=== PATIENT | female | born 1995 | race Caucasian/White ===

== ENCOUNTER 2018-04-27 07:43 | Observation (INO) | payer OTHER ==
[2018-04-27] VITALS (8 sets, daily range): BP systolic 95–123; BP diastolic 51–87
[~2018-04-27] VITALS: Ht 170.2 cm; Wt 57.2 kg
[~2018-04-27 07:43] MED LIST: DEPO-PROVE150 MG/11 IM
[2018-04-27] MEDS ORDERED: ONDANSETRON HCL INJ 2 MG/ML VIAL IV STA (08:52)
[2018-04-27] MEDS ORDERED: HYDROMORPHONE 1MG/1ML INJ IV STA (08:52)
[2018-04-27 09:11] LABS: BASOPHILS % 0.3 % (0.0-1.0); EOSINOPHILS # (AUTO) 0.1 (0.0-0.4); EOSINOPHILS % 1.1 % (0.0-6.0); HEMATOCRIT 39.1 % (34.2-44.1); HEMOGLOBIN 13.6 g/dL (12.0-16.0); LYMPHOCYTES # (AUTO) 0.7 (1.0-3.2); LYMPHOCYTES % 6.8 % (18.0-39.1); MEAN CORPUSCULAR HEMOGLOBIN 30.4 pg (28-32); MEAN CORPUSCULAR HGB CONC 34.8 g/dL (31-35); MEAN CORPUSCULAR VOLUME 87.5 fL (81-99); MONOCYTES # (AUTO) 0.5 (0.2-0.8); MONOCYTES % 4.7 % (4.4-11.3); NEUTROPHILS # (AUTO) 9.5 (2.1-6.9); NEUTROPHILS % 86.6 % (38.7-80.0); PLATELET COUNT 148 x10e3/uL (140-360); RED BLOOD COUNT 4.47 x10e6/uL (3.6-5.1)
[2018-04-27 09:20] LABS: INR 1.02; PROTHROMBIN TIME 12.6 seconds (11.9-14.5)
[2018-04-27 09:21] LABS: PARTIAL THROMBOPLASTIN TIME 28.6 seconds (23.8-35.5)
[2018-04-27 09:28] LABS: CLARITY,URINE HAZY (CLEAR); COLOR,URINE YELLOW (YELLOW)
[2018-04-27 09:29] LABS: BACTERIA,URINE FEW /HPF; BILIRUBIN,URINE NEGATIVE (NEGATIVE); EPITHELIAL CELLS,URINE MANY /LPF; KETONES,URINE NEGATIVE (NEGATIVE); LEUKOCYTE ESTERASE ,URINE NEGATIVE (NEGATIVE); NITRITE,URINE NEGATIVE (NEGATIVE); PROTEIN,URINE DIPSTICK NEGATIVE (NEGATIVE); RBC,URINE 0-5 /HPF (0-5); URINE UROBILINOGEN 0.2 mg/dL (0.2 - 1); WBC,URINE (MAN) 0-5 /HPF (0-5)
[2018-04-27 09:30] LABS: PREGNANCY TEST, URINE NEGATIVE (NEGATIVE)
[2018-04-27] MEDS ORDERED: HYDROMORPHONE 1MG/1ML INJ IV ONE ×2 (09:30→12:00)
[2018-04-27 09:31] LABS: ALANINE AMINOTRANSFERASE 13 IU/L (0-55); ALBUMIN/GLOBULIN RATIO 1.3 (0.8-2.0); ALKALINE PHOSPHATASE 36 IU/L (40-150); AMYLASE 68 U/L (25-125); ANION GAP 14.7 mmol/L (8-16); BLOOD UREA NITROGEN 13 mg/dL (7-26); BUN/CREATININE RATIO 16 (6-25); CALCIUM 9.5 mg/dL (8.4-10.2); CARBON DIOXIDE 22 mmol/L (22-29); CHLORIDE 104 mmol/L (98-107); CREATININE, SERUM 0.79 mg/dL (0.57-1.11); EST GLOMERULAR FILTRATION RATE > 60 ML/MIN (60-); GLUCOSE 98 mg/dL (74-118); LIPASE 26 U/L (8-78); POTASSIUM 3.7 mmol/L (3.5-5.1); SODIUM 137 mmol/L (136-145)
[2018-04-27] MEDS ORDERED: SODIUM CHLORIDE 0.9% 1000ML 1,000 ML IV SCH (09:45)
[2018-04-27] MEDS ORDERED: ONDANSETRON HCL INJ 2 MG/ML VIAL IV ONE ×2 (10:00→12:00)
--- NOTE | 2018-04-27 10:48 | Diagnostic Imaging Report ---
EXAM: CT Abdomen and Pelvis WITH contrast INDICATION: Pain COMPARISON: None. TECHNIQUE: Abdomen and Pelvis was scanned utilizing a multidetector helical scanner after administration of IV contrast. Coronal and sagittal reformations were obtained. IV CONTRAST: 100 mL Isovue-370 COMPLICATIONS: None RADIATION DOSE: Total DLP:192 mGy*cm Estimated effective dose: (DLP x 0.015 x size factor) mSv CTDIvol has been reviewed. It is below the limits set by the Radiation Protocol Committee (RPC). FINDINGS: Abdomen: Lung Bases: No acute findings. Solid Organs: Liver, adrenals, kidneys, spleen, and pancreas unremarkable. Upper GI Tract: No small bowel obstructive changes. Vascularity: No vascular calcifications or aortic aneurysm. Lymph Nodes: No suspicious adenopathy. Other: None. Pelvis: Bladder: Unremarkable. Other: Uterus/adnexa suboptimally evaluated with CT. Trace free fluid statistically ruptured or leaking ovarian cyst given age. Colon: Appendix is dilated and inflamed with appendicolith. No fluid collection. Bones: No acute findings. IMPRESSION: 1. Uncomplicated appendicitis. Signed by: Dr. Brad Hernandez MD on 04/27/2018 10:45 AM
[2018-04-27] MEDS ORDERED: PIPER-TAZ 3.375 GM 50 ML IV STA (11:06)
[2018-04-27] MEDS ORDERED: D5.45%NS/KCL 20MEQ 1,000 ML IV SCH (11:28)
[2018-04-27] MEDS ORDERED: HYDROMORPHONE 1MG/1ML INJ IV PRN (11:30)
[2018-04-27] MEDS ORDERED: ONDANSETRON HCL INJ 2 MG/ML VIAL IV PRN ×2 (11:30→15:00)
[2018-04-27] MEDS ORDERED: PIPER-TAZ 3.375 GM 50 ML IV SCH (13:00)
[2018-04-27] MEDS ORDERED: BUPIVACAINE HCL 0.5% INJ 30 ML VIAL INJ ONE (13:50)
[2018-04-27] MEDS: DEXTROSE 5%/0.45% SOD CHL 1,000 ML IV SCH (15:00)
[2018-04-27] MEDS ORDERED: MORPHINE SULFATE INJ 4 MG/ML INJ IV PRN (15:00)
--- NOTE | 2018-04-27 15:32 | Pre Op History & Physical ---
CHIEF COMPLAINT: Abdominal pain. HISTORY OF PRESENT ILLNESS: The patient is a 22-year-old female who is having complaints of abdominal pain. The pain started in the mid abdomen and became more localized to the right lower quadrant. She had associated nausea and vomiting. Pain persisted and it got worse. CT of the abdomen done which reveals findings suggestive of acute appendicitis. PAST MEDICAL HISTORY: Is otherwise unremarkable. Denies chronic medical problems. Has not had previous surgery. CURRENT MEDICATIONS: None. ALLERGIES: NO KNOWN DRUG ALLERGIES. FAMILY HISTORY: Noncontributory. SOCIAL HISTORY: The patient does not smoke cigarettes or drink alcohol. REVIEW OF SYSTEMS: Is as stated above, otherwise was negative. PHYSICAL EXAMINATION: GENERAL: The patient is awake and alert and in no distress. VITAL SIGNS: Normal. HEENT: Unremarkable. Sclerae is nonicteric. NECK: Supple with no masses. CHEST: Lungs equal breath sounds are clear bilaterally. CARDIOVASCULAR: Regular rate and rhythm. Normal S1 and S2 without murmur, S3 or S4. There was no jugular venous distention. ABDOMEN: Tender in the right lower quadrant with signs of peritonitis localized to the right lower quadrant. There is no mass. No distention. EXTREMITIES: Warm. There was no edema. Pulses are palpable. NEURO: Intact. LAB TESTS: White blood count is 10.96. Hemoglobin and hematocrit are normal. Chemistries are normal. test was negative. Urinalysis essentially negative. ASSESSMENT: A 22-year-old female with acute appendicitis now admitted to the hospital. PLAN: Laparoscopic appendectomy. The procedure was explained to the patient including risks, benefits and alternatives. She understands the procedure and she has had an opportunity to ask questions. Job#: [id number]
[2018-04-27] MEDS: HYDROCODONE/APAP 5MG-325MG TAB PO PRN ×2 (17:25→22:00)
[2018-04-27] MEDS: PIPER-TAZ 3.375 GM 50 ML IV SCH ×2 (17:25→22:00)
[2018-04-27] MEDS ORDERED: ACETAMINOPHEN 1000 MG/100 ML IV ONE (17:38)
[2018-04-27] MEDS ORDERED: PROPOFOL IV EMULSION 10 MG/ML 20 ML VIAL ONE (17:38)
[2018-04-27] MEDS ORDERED: ONDANSETRON HCL INJ 2 MG/ML VIAL ONE (17:38)
[2018-04-27] MEDS ORDERED: SUCCINYLCHOLINE 200 MG/10 ML SYR ONE (17:38)
[2018-04-27] MEDS ORDERED: SEVOFLURANE INHAL SOLN 250 ML PEN BTL ONE (17:38)
[2018-04-27] MEDS ORDERED: DEXAMETHASONE SOD PHOS INJ 4 MG/ML VIAL ONE (17:38)
[2018-04-27] MEDS ORDERED: KETOROLAC TROMETHAMINE 30 MG/ML VIAL ONE (17:38)
[2018-04-27] MEDS ORDERED: SODIUM CHLORIDE 0.9% 50ML 50 ML ONE (17:47)
[2018-04-27] MEDS ORDERED: IOPAMIDOL 370 MG/ML 200 ML INFUS..BTL INJ ONE (17:47)
--- NOTE | 2018-04-27 23:49 | Operative Report ---
DATE OF PROCEDURE: April 27, 2018 PREOPERATIVE DIAGNOSIS: Acute appendicitis. POSTOPERATIVE DIAGNOSIS: Acute appendicitis. PROCEDURES: 1. Diagnostic laparoscopy. 2. Laparoscopic appendectomy. MARKETING SUPPORT SPECIALIST: None. ANESTHESIA: General. INDICATIONS AND FINDINGS: A 22-year-old female presented with 1-day history of abdominal pain, localized to right lower quadrant. Surgery based on acutely inflamed retrocecal appendicitis. TECHNIQUE: After adequate general endotracheal anesthesia, patient in supine position, the abdomen was prepped and draped in sterile fashion with Daniel solution. The skin in the umbilicus was infiltrated with 0.5% Marcaine. Incision was made in the umbilicus. The abdominal wall was elevated, Veress needle was introduced. Pneumoperitoneum was then created. A 10-mm trocar and cannula were then passed through the umbilical wound. Laparoscopic camera was introduced. Initial laparoscopy revealed, no free fluid. The bowel was seen and appeared normal. The liver was normal. The stomach was normal. A 12-mm trocar and cannula were placed suprapubically and a 5-mm trocar and cannula were placed in the right upper quadrant. These were placed under direct vision. The cecum was elevated. The base of the appendix was seen. It was found the appendix was retrocecal. The cecum was mobilized by dividing its peritoneal attachments. The base of the appendix was freed and window created between the base of the appendix and the mesoappendix. The base of the appendix was divided close to the cecum with Endo JAN stapler. The mesoappendix was also divided with Endo JAN stapler and with Hemoclips until the appendix was completely freed. The appendix was placed into an Endo pouch and brought out through the suprapubic cannula. Care was taken it did not touch the abdominal wall. The area of the appendectomy was inspected for hemostasis which was seen to be adequate. It was irrigated with saline. All fluid aspirated, inspected for hemostasis which was seen to be adequate. Instruments and cannulas were then removed. Pneumoperitoneum was evacuated. Wounds were then closed. Fascia in the umbilical and suprapubic wound closed with 0-Vicryl. Skin to all wounds closed with mike. Sterile dressings applied to each wound. Patient tolerated the procedure well. Estimated blood loss was 10 mL. There were no complications. All counts were correct. Patient was taken to the recovery room in satisfactory condition. Job#: [id number] GE
[2018-04-28] VITALS: BP 93/53
[2018-04-28] MEDS: DEXTROSE 5%/0.45% SOD CHL 1,000 ML IV SCH ×2 (01:50→11:10)
[2018-04-28] MEDS: HYDROCODONE/APAP 5MG-325MG TAB PO PRN ×3 (01:50→11:11)
[2018-04-28 04:00] VITALS: BP 95/51
[2018-04-28 05:36] LABS: BASOPHILS % 0.1 % (0.0-1.0); EOSINOPHILS % 0.1 % (0.0-6.0); HEMOGLOBIN 10.9 g/dL (12.0-16.0); LYMPHOCYTES # (AUTO) 0.8 (1.0-3.2); LYMPHOCYTES % 6.4 % (18.0-39.1); MEAN CORPUSCULAR HEMOGLOBIN 30.2 pg (28-32); MEAN CORPUSCULAR HGB CONC 34.1 g/dL (31-35); MEAN CORPUSCULAR VOLUME 88.6 fL (81-99); MONOCYTES # (AUTO) 0.8 (0.2-0.8); MONOCYTES % 6.5 % (4.4-11.3); NEUTROPHILS # (AUTO) 10.1 (2.1-6.9); NEUTROPHILS % 86.5 % (38.7-80.0); PLATELET COUNT 123 x10e3/uL (140-360); RED BLOOD COUNT 3.61 x10e6/uL (3.6-5.1); RED CELL DISTRIBUTION WIDTH 11.9 % (11.7-14.4)
[2018-04-28] MEDS: PIPER-TAZ 3.375 GM 50 ML IV SCH ×2 (05:54→11:10)
[2018-04-28 05:55] LABS: ANION GAP 9.7 mmol/L (8-16); BLOOD UREA NITROGEN 7 mg/dL (7-26); BUN/CREATININE RATIO 10 (6-25); CALCIUM 8.7 mg/dL (8.4-10.2); CARBON DIOXIDE 23 mmol/L (22-29); CHLORIDE 106 mmol/L (98-107); CREATININE, SERUM 0.67 mg/dL (0.57-1.11); EST GLOMERULAR FILTRATION RATE > 60 ML/MIN (60-); GLUCOSE 130 mg/dL (74-118); POTASSIUM 3.7 mmol/L (3.5-5.1); SODIUM 135 mmol/L (136-145)
[2018-04-28 08:32] VITALS: BP 92/53
[2018-04-28 11:40] VITALS: BP 98/55
[2018-04-28] MEDS ORDERED: ULTRACET TABLE1 EACH PO (12:29)
== END 2018-04-28 13:12 | disposition home or self-care (01) ==
LOC: ER 07:43 → ERHOLD 11:28 → MED/SURG 12:33
PROVIDERS: ADMIT Surgery; ATTEND Surgery
DX: K35.80 Unspecified acute appendicitis (principal)
CPT/HCPCS: 36415 ×2; 44970; 74177; 80048; 80053; 81001; 81025; 82150; 83690; 85025 ×2; 85610; 85730; 88304; 99284; G0378 ×2; J1100; J1170; J1885; J2270; J2405; J2543 ×2; Q9967

== ENCOUNTER → 2019-04-02 | Outpatient (CLI) | payer OTHER ==
[~2019-04-02] MED LIST changes: +ULTRACET TABLE1 EACH PO
--- NOTE | 2019-04-03 08:33 | Diagnostic Imaging Report ---
#[id number] - [id number] ULTRASOUND GUIDED BIOPSY LEFT BREAST: 04/02/2019 PATIENT CONSENT: According to [facility] requirements, a time out was performed, correct site was localized and the patient was consented. Correlation is made to exam dated: 12/16/2015 ultrasound - [facility]. An ultrasound guided biopsy using real-time ultrasound was performed for the palpable 2 cm lobulated mass located in the left breast at 7 o'clock posterior depth. This was described on the previous ultrasound report. The skin was prepped in the usual manner. Local anesthetic was administered to the access site. A small incision was made in the breast. A 14 gauge biopsy needle was placed adjacent to the abnormality under ultrasound guidance. Once the needle was documented to be in the correct location, three specimens were obtained using an Achieve automated firing device. The specimens were sent to the laboratory for pathological analysis. IMPRESSION: ULTRASOUND GUIDED BIOPSY Ultrasound guided biopsy of the 2 cm mass in the left breast posterior depth was successful. Waiting for pathology results. A final report will be issued when these become available. IRIS PETERS M.D. ct/:04/02/2019 13:11:29 Substance Abuse Specialist: Sophie DISLA)(Jonah), [facility] [id number]
== END ==
LOC: US 07:13
PROVIDERS: ATTEND Family Medicine
DX: N63.20 Unspecified lump in the left breast, unspecified quadrant (principal); R92.8 Other abnormal and inconclusive findings on diagnostic imaging of breast
CPT/HCPCS: 88305